=== PATIENT | male | born 1970 | race Caucasian/White ===

== ENCOUNTER → 2016-06-13 | Outpatient (REF) | payer OTHER ==
[2016-06-13 11:56] LABS: IMMMOTILE SPERM CENTRIFUGED ABSENT (ABSENT); IMMOTILE SPERM ABSENT (ABSENT); MOTILE SPERM ABSENT (ABSENT); MOTILE SPERM CENTRIFUGED ABSENT (ABSENT)
== END ==
LOC: M SMT 11:34
PROVIDERS: ATTEND Urology
DX: Z30.2 Encounter for sterilization (principal)

== ENCOUNTER → 2021-11-29 | Outpatient (CLI) | payer OTHER ==
[2021-11-29 08:46] LABS: BLOOD UREA NITROGEN 20 MG/DL (7-18); CALCIUM LEVEL 9.9 MG/DL (8.5-10.1); CARBON DIOXIDE LEVEL 25 MEQ/L (21-32); CHLORIDE LEVEL 108 MEQ/L (98-107); CHOLESTEROL LEVEL 248 MG/DL (<200); CHOLESTEROL RISK RATIO 6.702 (<5); CREATININE FOR GFR 0.85 MG/DL (0.70-1.30); GLOMERULAR FILTRATION RATE > 60.0 (>56); GLUCOSE, FASTING 105 MG/DL (70-100); HDL CHOLESTEROL 37 MG/DL (>40); LDL CHOLESTEROL 169 MG/DL (<100); NON-HDL-C 211 MG/DL; POTASSIUM SERUM 3.8 MEQ/L (3.5-5.1); SODIUM LEVEL 141 MEQ/L (136-145); TRIGLYCERIDES LEVEL 212 MG/DL (<150)
[2021-11-29 10:38] LABS: HEMOGLOBIN A1c 5.3 %
== END ==
LOC: M LAB 07:53
PROVIDERS: ATTEND Family Medicine
DX: E66.3 Overweight (principal); E78.5 Hyperlipidemia, unspecified

== ENCOUNTER → 2022-05-21 | Outpatient (CLI) | payer OTHER | LOC: M LABSMTC 10:45 | PROVIDERS: ATTEND Anesthesiology | DX: Z01.812 Encounter for preprocedural laboratory examination (principal); Z11.52 Encounter for screening for COVID-19 ==

== ENCOUNTER 2022-05-24 06:54 | Day surgery (SDC) | payer OTHER ==
[~2022-05-24] VITALS: Ht 190.5 cm; Wt 98.3 kg
[~2022-05-24 06:54] MED LIST: NS 1,000 ML IV ONE
[2022-05-24] MEDS ORDERED: propofoL 200 MG/20 ML VIAL As Ordered ONE ×2 (07:29→08:59)
[2022-05-24] MEDS ORDERED: LIDOCAINE 2% 100MG/5ML SDV (FOR ANES.) As Ordered ONE (07:29)
[2022-05-24 09:34] VITALS: BP 136/94
== END 2022-05-24 09:45 | disposition home or self-care (01) ==
LOC: M OPP 06:54
PROVIDERS: ATTEND Internal Medicine Gastroenterology
DX: Z12.11 Encounter for screening for malignant neoplasm of colon (principal); D12.6 Benign neoplasm of colon, unspecified; K57.30 Diverticulosis of large intestine without perforation or abscess without bleeding; K64.4 Residual hemorrhoidal skin tags; K64.8 Other hemorrhoids; Z80.8 Family history of malignant neoplasm of other organs or systems; L29.0 Pruritus ani; F32.9 Major depressive disorder, single episode, unspecified; F41.9 Anxiety disorder, unspecified; K59.00 Constipation, unspecified

== ENCOUNTER 2023-07-21 07:14 | Observation (INO) | payer OTHER ==
[~2023-07-21] VITALS: Ht 190.5 cm; Wt 104.9 kg
[2023-07-21] MEDS ORDERED: SILD25TA PO (07:29)
[2023-07-21] MEDS: diphenhydrAMINE 50MG/ML VIAL IV ONE (07:38)
[2023-07-21] MEDS: dexAMETHasone 20MG/5ML VIAL IV ONE (07:40)
[2023-07-21] MEDS: FAMOTIDINE 20MG/2ML VIAL IVP ONE (07:40)
[2023-07-21 07:52] LABS: BASO # 0.1 10^3/uL (0.0-0.2); BASO % 0.5 % (0.0-1.0); EOS # 0.1 10^3/uL (0.0-0.5); EOS % 1.4 % (0.0-3.0); LYMPH # 3.7 10^3/uL (1.5-5.0); LYMPH % 38.2 % (24.0-44.0); MEAN CORPUSCULAR HGB CONC 32.7 g/dl (32.0-36.5); MEAN CORPUSCULAR VOLUME 85.7 fl (80.0-96.0); MONO # 0.8 10^3/uL (0.0-0.8); MONO % 8.6 % (2.0-8.0); NEUTROPHILS # 4.9 10^3/uL (1.5-8.5); NEUTROPHILS % 50.9 % (36.0-66.0); PLATELET COUNT, AUTOMATED 356 10^3/uL (150-450); RED BLOOD COUNT 5.72 10^6/uL (4.30-6.10); WHITE BLOOD COUNT 9.7 10^3/uL (4.0-10.0)
[2023-07-21 08:13] LABS: BLOOD UREA NITROGEN 16 MG/DL (9-23); CALCIUM LEVEL 9.1 MG/DL (8.5-10.1); CARBON DIOXIDE LEVEL 26 MMOL/L (20-31); CHLORIDE LEVEL 106 MMOL/L (98-107); CREATININE FOR GFR 0.73 MG/DL (0.70-1.30); GLOMERULAR FILTRATION RATE > 60.0 (>56); GLUCOSE, FASTING 105 MG/DL (60-100); POTASSIUM SERUM 3.7 MMOL/L (3.5-5.1); SODIUM LEVEL 141 MMOL/L (136-145)
[2023-07-21] MEDS ORDERED: MED REC IN PROGRESS XX SCH (09:00)
[2023-07-21] MEDS ORDERED: HOME MED LIST COMPLETE! XX SCH (09:10)
[2023-07-21] MEDS ORDERED: MOM 30ML SUSPENSION UDC PO PRN (10:00)
[2023-07-21] MEDS ORDERED: methylPREDNISolone 125MG 2ML VIAL IV ONE (10:00)
[2023-07-21] MEDS ORDERED: ACETAMINOPHEN TAB 650MG DOSE (2X325MG) PO PRN (10:00)
[2023-07-21] MEDS ORDERED: methylPREDNISolone 40MG 1ML VIAL IV ONE (10:00)
[2023-07-21 10:50] VITALS: BP 137/88; TEMP 98.4; O2SAT 94
[2023-07-21] MEDS: DOCUSATE SODIUM 100MG CAPSULE PO SCH (11:06)
[2023-07-21] MEDS: methylPREDNISolone 40MG 1ML VIAL IV SCH (13:30)
[2023-07-21] MEDS: diphenhydrAMINE 50MG/ML VIAL IV SCH (13:30)
[2023-07-21 14:00] VITALS: BP 125/74; TEMP 98.2; O2SAT 93
[2023-07-21] MEDS ORDERED: methylPREDNISolone 40MG 1ML VIAL IV SCH (16:00)
[2023-07-21 20:00] VITALS: BP 131/73; TEMP 98.8; O2SAT 93
[2023-07-22] VITALS (7 sets, daily range): BP systolic 117–125; BP diastolic 66–89; TEMP 97.7–99; O2SAT 92–94
[2023-07-22 06:33] LABS: HEMATOCRIT 44.3 % (42.0-52.0); HEMOGLOBIN 14.8 g/dl (13.5-17.5); MEAN CORPUSCULAR HEMOGLOBIN 28.5 pg (27.0-33.0); MEAN CORPUSCULAR HGB CONC 33.4 g/dl (32.0-36.5); MEAN CORPUSCULAR VOLUME 85.2 fl (80.0-96.0); PLATELET COUNT, AUTOMATED 387 10^3/uL (150-450); WHITE BLOOD COUNT 15.7 10^3/uL (4.0-10.0)
[2023-07-22 07:06] LABS: BLOOD UREA NITROGEN 15 MG/DL (9-23); CALCIUM LEVEL 8.8 MG/DL (8.5-10.1); CARBON DIOXIDE LEVEL 23 MMOL/L (20-31); CHLORIDE LEVEL 107 MMOL/L (98-107); CREATININE FOR GFR 0.63 MG/DL (0.70-1.30); GLOMERULAR FILTRATION RATE > 60.0 (>56); GLUCOSE, FASTING 142 MG/DL (60-100); SODIUM LEVEL 141 MMOL/L (136-145)
[2023-07-22] MEDS: ENOXAPARIN 40MG/0.4ML SYRINGE (J1650 PER 10MG) SC SCH (08:37)
[2023-07-22] MEDS: METOPROLOL TART 25 MG TABLET PO SCH (09:30)
[2023-07-22 13:24] LABS: MAGNESIUM LEVEL 1.9 MG/DL (1.8-2.4)
[2023-07-22 13:29] LABS: FREE T4 0.97 NG/DL (0.89-1.76); THYROID STIMULATING HORMONE 0.463 uIU/ML (0.55-4.78)
[2023-07-22 16:14] LABS: CHOLESTEROL LEVEL 250 MG/DL (<200); CHOLESTEROL RISK RATIO 4.75 (<5); HDL CHOLESTEROL 52.6 MG/DL (>40); LDL CHOLESTEROL 178.6 MG/DL (<100); NON-HDL-C 197.4 MG/DL; TRIGLYCERIDES LEVEL 94 MG/DL (<150)
[2023-07-22 17:26] LABS: HEMOGLOBIN A1c 5.3 % (4.0-6.0)
[2023-07-23 04:00] VITALS: BP 119/74; TEMP 98.6; O2SAT 93
[2023-07-23] MEDS ORDERED: PILL CUTTER 1 EACH XX PRN (05:10)
[2023-07-23 06:48] LABS: HEMATOCRIT 44.9 % (42.0-52.0); HEMOGLOBIN 14.5 g/dl (13.5-17.5); MEAN CORPUSCULAR HEMOGLOBIN 27.9 pg (27.0-33.0); MEAN CORPUSCULAR HGB CONC 32.3 g/dl (32.0-36.5); MEAN CORPUSCULAR VOLUME 86.5 fl (80.0-96.0); PLATELET COUNT, AUTOMATED 412 10^3/uL (150-450); RED BLOOD COUNT 5.19 10^6/uL (4.30-6.10); WHITE BLOOD COUNT 18.9 10^3/uL (4.0-10.0)
[2023-07-23] MEDS: ATORVASTATIN 20 MG TAB PO SCH (08:45)
[2023-07-23] MEDS ORDERED: METOPROLOL TART 25 MG TABLET PO SCH (09:00)
[2023-07-23] MEDS ORDERED: EPIN0.3I11 IM (11:30)
[2023-07-23] MEDS ORDERED: ATOR1TAB21 PO (11:30)
[2023-07-23 14:00] VITALS: BP 135/85; TEMP 97.3; O2SAT 95
== END 2023-07-23 14:07 | disposition home or self-care (01) ==
LOC: M ED 07:14 → M ED INP 07:15 → M MSPAV 10:47
PROVIDERS: ADMIT Student in an Organized Health Care Education/Training Program; ATTEND Student in an Organized Health Care Education/Training Program
DX: K13.79 Other lesions of oral mucosa (principal); J39.8 Other specified diseases of upper respiratory tract; Z91.048 Other nonmedicinal substance allergy status; N52.9 Male erectile dysfunction, unspecified
CPT/HCPCS: 31575; 80048; 80061; 83036; 83735; 84439; 84443; 85025; 85027; 87635; 93005; 93041; 93306; 94760; 96372; 96374; 96375; 96376; 99285; J1100; J1200; J1650; J2920; S0028

== ENCOUNTER → 2023-09-27 | Outpatient (REF) | payer OTHER ==
[~2023-09-27] MED LIST changes: +ATOR1TAB21 PO; +EPIN0.3I11 IM; -NS 1,000 ML IV ONE; +SILD25TA PO
== END ==
LOC: M LAB REF 15:07
PROVIDERS: ATTEND Surgery
DX: K61.1 Rectal abscess (principal)

== ENCOUNTER → 2024-06-16 | Outpatient (REF) | payer OTHER ==
[2024-06-16 18:47] LABS: BASO % 0.5 % (0.0-1.0); EOS # 0.1 10^3/uL (0.0-0.5); EOS % 1.5 % (0.0-3.0); HEMATOCRIT 50.4 % (42.0-52.0); HEMOGLOBIN 16.2 g/dl (13.5-17.5); LYMPH # 2.4 10^3/uL (1.5-5.0); LYMPH % 30.3 % (24.0-44.0); MEAN CORPUSCULAR HEMOGLOBIN 27.9 pg (27.0-33.0); MEAN CORPUSCULAR HGB CONC 32.1 g/dl (32.0-36.5); MEAN CORPUSCULAR VOLUME 86.9 fl (80.0-96.0); MONO # 0.6 10^3/uL (0.0-0.8); MONO % 7.8 % (2.0-8.0); NEUTROPHILS # 4.6 10^3/uL (1.5-8.5); NEUTROPHILS % 59.5 % (36.0-66.0); PLATELET COUNT, AUTOMATED 372 10^3/uL (150-450); WHITE BLOOD COUNT 7.8 10^3/uL (4.0-10.0)
[2024-06-16 18:48] LABS: ALBUMIN 4.1 G/DL (3.2-5.2); ALKALINE PHOSPHATASE 99 U/L (40-129); ALT/SGPT 83 U/L (7.0-40); AST/SGOT 38 U/L (<34); BILIRUBIN,TOTAL 0.8 MG/DL (0.3-1.2); BLOOD UREA NITROGEN 15 MG/DL (9-23); CALCIUM LEVEL 9.8 MG/DL (8.5-10.1); CARBON DIOXIDE LEVEL 26 MMOL/L (20-31); CHLORIDE LEVEL 106 MMOL/L (98-107); CHOLESTEROL LEVEL 272 MG/DL (<200); CHOLESTEROL RISK RATIO 6.43 (<5); CREATININE FOR GFR 0.65 MG/DL (0.70-1.30); GLOMERULAR FILTRATION RATE > 60.0 (>56); GLUCOSE, FASTING 100 MG/DL (60-100); HDL CHOLESTEROL 42.3 MG/DL (>40); LDL CHOLESTEROL 190.7 MG/DL (<100); NON-HDL-C 229.7 MG/DL; POTASSIUM SERUM 4.2 MMOL/L (3.5-5.1); PSA SCREENING 0.71 NG/ML (< 4.00); SODIUM LEVEL 142 MMOL/L (136-145); TOTAL PROTEIN 7.4 G/DL (5.7-8.2); TRIGLYCERIDES LEVEL 195 MG/DL (<150)
[2024-06-16 18:49] LABS: THYROID STIMULATING HORMONE 2.489 uIU/ML (0.55-4.78); TOTAL 25(OH) VITAMIN D 24.2 NG/ML (20.0-100.0)
[2024-06-16 19:04] LABS: HEMOGLOBIN A1c 5.4 % (4.0-6.0)
[2024-06-16 19:19] LABS: HIV 1&2 SCREEN NEGATIVE (NEGATIVE)
[2024-06-16 19:27] LABS: HEPATITIS C VIRUS ABY INDEX < 0.02 INDEX (<0.8)
== END ==
LOC: M SFHCLERA 08:44
DX: Z11.59 Encounter for screening for other viral diseases (principal); E78.5 Hyperlipidemia, unspecified; I10 Essential (primary) hypertension; F41.9 Anxiety disorder, unspecified; I47.10 Supraventricular tachycardia, unspecified; Z11.4 Encounter for screening for human immunodeficiency virus [HIV]; Z12.5 Encounter for screening for malignant neoplasm of prostate

== ENCOUNTER → 2024-07-29 | Outpatient (CLI) | payer OTHER | LOC: M RAD 07:12 | DX: Z13.6 Encounter for screening for cardiovascular disorders (principal); Z82.49 Family history of ischemic heart disease and other diseases of the circulatory system; I77.819 Aortic ectasia, unspecified site ==

== ENCOUNTER 2024-08-04 07:02 | Emergency (ER) | payer OTHER ==
[~2024-08-04] VITALS: Ht 190.5 cm; Wt 109.9 kg
[2024-08-04] MEDS: FAMOTIDINE 20 MG TAB PO ONE (10:25)
[2024-08-04] MEDS: predniSONE 20 MG TAB PO ONE (10:25)
[2024-08-04] MEDS ORDERED: CETI-24 PO (12:05)
[2024-08-04] MEDS ORDERED: PRED20TA PO (12:05)
[2024-08-04] MEDS ORDERED: AMLO1TAB24 PO (12:06)
[2024-08-04 12:15] VITALS: BP 123/78; TEMP 97; O2SAT 98
== END 2024-08-04 12:19 | disposition home or self-care (01) ==
LOC: M ED 07:02
DX: K13.79 Other lesions of oral mucosa (principal); I10 Essential (primary) hypertension; Z79.899 Other long term (current) drug therapy
CPT/HCPCS: 87430; 99283; J7512

== ENCOUNTER → 2024-09-17 | Outpatient (CLI) | payer OTHER ==
[~2024-09-17] MED LIST changes: +AMLO1TAB24 PO; +CETI-24 PO; +PRED20TA PO
== END ==
LOC: M SLEEP HO 10:49
PROVIDERS: ATTEND Registered Nurse
DX: G47.33 Obstructive sleep apnea (adult) (pediatric) (principal); R06.83 Snoring

== ENCOUNTER → 2024-09-22 | Outpatient (CLI) | payer OTHER | LOC: M CARPUL 14:45 | PROVIDERS: ATTEND Registered Nurse | DX: R94.31 Abnormal electrocardiogram [ECG] [EKG] (principal); R07.9 Chest pain, unspecified; R06.09 Other forms of dyspnea ==

== ENCOUNTER → 2025-02-22 | Outpatient (CLI) | payer OTHER ==
[2025-02-22 09:23] LABS: ALT/SGPT 54.0 U/L (7.0-40); AST/SGOT 27.0 U/L (<34); CHOLESTEROL LEVEL 163.0 MG/DL (<200); CHOLESTEROL RISK RATIO 4.13 (<5); LDL CHOLESTEROL 98.6 MG/DL (<100); NON-HDL-C 123.6 MG/DL; TRIGLYCERIDES LEVEL 125.0 MG/DL (<150)
== END ==
LOC: M LAB 07:39
PROVIDERS: ATTEND Registered Nurse
DX: E78.2 Mixed hyperlipidemia (principal)

== ENCOUNTER → 2025-05-13 | Outpatient (CLI) | payer OTHER ==
[2025-05-13 07:04] LABS: PLATELET COUNT, AUTOMATED 377 10^3/uL (150-450)
[2025-05-13 07:42] LABS: INR 0.94
[2025-05-13 07:44] LABS: ALT/SGPT 59 U/L (7.0-40); AST/SGOT 34 U/L (<34); CALCIUM LEVEL 9.0 MG/DL (8.5-10.1); CARBON DIOXIDE LEVEL 28 MMOL/L (20-31); CHLORIDE LEVEL 105 MMOL/L (98-107); CREATININE FOR GFR 0.72 MG/DL (0.70-1.30); GLOMERULAR FILTRATION RATE > 90.0 (>56); POTASSIUM SERUM 4.1 MMOL/L (3.5-5.1); SODIUM LEVEL 142 MMOL/L (136-145)
== END ==
LOC: M LAB 06:25
PROVIDERS: ATTEND Nurse Practitioner Acute Care
DX: I67.1 Cerebral aneurysm, nonruptured (principal)